=== PATIENT | male | born 1980 | race Hispanic/Latino ===

== ENCOUNTER → 2025-07-14 | Outpatient (CLI) | payer OTHER ==
[~2025-07-14] MED LIST: GADOTERATE MEGLUMINE 10 MMOL/20 ML VIAL IV ONE
--- NOTE | 2025-07-14 16:36 | HMCIMG ---
Preface MR Cholangiopancreatography TECHNIQUE: Multiplanar images were obtained with and without intravenous contrast, utilizing a series of customized pulse sequences. Liver Normal. No focal lesions. Bile ducts are normal caliber. The common bile duct is 2 mm. The gallbladder was nonvisualized. No abnormal enhancing lesions. Pancreas No mass or peripancreatic fluid. Spleen Normal in size and configuration. Adrenals Normal bilaterally. No masses. Kidneys Normal in size and configuration. No evidence of stone, hydronephrosis, mass or significant cyst. Retroperitoneum No mass or lymphadenopathy. Aorta The visualized abdominal aorta is normal in size and configuration. No stenosis or aneurysm. Bowel/mesentery Normal. No evidence of bowel dilatation or wall thickening. No fluid (free or loculated), mesenteric stranding or lymphadenopathy. Abdominal wall Normal. Bones Normal. IMPRESSION:1. The gallbladder was not visualized question cholecystectomy. No evidence of biliary distention. /Douglas
== END | disposition home or self-care (01) ==
LOC: RAH 08:52
PROVIDERS: ATTEND Internal Medicine Gastroenterology
DX: K82.8 Other specified diseases of gallbladder (principal); R10.11 Right upper quadrant pain
CPT/HCPCS: 74183; A9575